=== PATIENT | male | born 1960 | race African-American/Black ===

== ENCOUNTER 2023-04-12 18:45 | Inpatient (IN) | payer MEDICARE, OTHER ==
[~2023-04-12] VITALS: Ht 175.3 cm; Wt 82.6 kg
--- NOTE | 2023-04-12 19:26 | NUR ---
MARCELA FROM [facility] C/O ABD PAIN & DISTENSION X1 WEEK. CODE STATUS DNR. PT A/OX3. TOLERATING R/A WELL WITH NO RESP DISTRESS. AMB WITH ASSISTANCE. SAFETY MEASURES IN PLACE.
[2023-04-12] MEDS ORDERED: IV NS 0.9% 1,000 ML BAG IV ONE (20:00)
--- NOTE | 2023-04-12 20:10 | NUR ---
LAC #20G S/L BLOOD COLLECTED AND SENT TO LAB
[2023-04-12 20:22] LABS: BASOPHILS % (AUTO) 0.6 % (0.0-2.0); EOSINOPHILS % (AUTO) 5.3 % (0.0-6.0); HEMATOCRIT 38 % (39-51); LYMPHOCYTES # (AUTO) 1.1 K/uL (0.8-4.8); LYMPHOCYTES % (AUTO) 20.9 % (20.0-44.0); MEAN CORPUSCULAR HGB CONC 32 g/dl (31.0-36.0); MEAN CORPUSCULAR VOLUME 93 fL (80-96); MONOCYTES # (AUTO) 0.9 K/uL (0.1-1.30); MONOCYTES % (AUTO) 16.9 % (2.0-12.0); NEUTROPHILS # (AUTO) 3.1 K/uL (1.8-8.9); NEUTROPHILS % (AUTO) 56.3 % (43.0-81.0); PLATELET COUNT (AUTO) 225 K/uL (150-450); RED BLOOD CELL COUNT(AUTO) 4.07 MIL/uL (4.5-6.0); WHITE BLOOD COUNT (AUTO) 5.5 K/uL (4.3-11.0)
--- NOTE | 2023-04-12 21:05 | NUR ---
URINE SAMPLE SENT TO LAB
[2023-04-12 21:10] LABS: ALANINE AMINOTRANSFERASE 23 U/L (12-78); ALBUMIN 3.1 g/dL (3.4-5.0); ALKALINE PHOSPHATASE 181 U/L (46-116); ASPARTATE AMINOTRANSFERASE 27 U/L (15-37); BILIRUBIN,DIRECT 0.2 mg/dL (0.0-0.2); BILIRUBIN,TOTAL 0.5 mg/dL (0.2-1.0); CALCIUM, SERUM 8.8 mg/dL (8.5-10.1); CARBON DIOXIDE 31 mmol/L (21-32); CHLORIDE 104 mmol/L (98-107); CREATININE 1.6 mg/dL (0.6-1.3); GLUCOSE 115 mg/dL (74-106); LIPASE 65 U/L (73-393); POTASSIUM 4.7 mmol/L (3.5-5.1); SODIUM SERUM 142 mmol/L (136-145); TOTAL PROTEIN, SERUM 7.1 g/dL (6.4-8.2); UREA NITROGEN, BLOOD 18 mg/dL (7-18)
[2023-04-12 21:18] LABS: MAGNESIUM 1.7 mg/dL (1.8-2.4)
[2023-04-12 21:49] LABS: BILIRUBIN,URINE 1+ (NEGATIVE); COLOR,URINE YELLOW (YELLOW); LEUKOCYTE ESTERASE ,URINE NEGATIVE (NEGATIVE); NITRITE, URINE NEGATIVE (NEGATIVE); PROTEIN,URINE NEGATIVE (NEGATIVE); UGLUCOSE NEGATIVE (NEGATIVE); UROBILINOGEN,URINE >=8.0 EU/dL (0.2)
[2023-04-12 21:57] LABS: BACTERIA,URINE None seen /HPF (None Seen); RBC,URINE 0-2 /HPF (0-2); SQUAMOUS EPITHELIAL CELL,UR 0-2 /HPF (None Seen); WBC,URINE 0-2 /HPF (0-3)
[2023-04-12 22:03] LABS: EOSINOPHILS % (MANUAL) 4 % (0-4); LYMPHOCYTES % (MANUAL) 32 % (16-48); MONOCYTES % (MANUAL) 5 % (0-11.0); NEUTROPHILS % (MANUAL) 59 (42-76)
[2023-04-12] MEDS ORDERED: IV NS 0.9% 250 ML IV ONE (22:09)
[2023-04-12] MEDS ORDERED: IOHEXOL-300 100 ML VIAL IV ONE (22:09)
[2023-04-12] MEDS ORDERED: CT SWABBABLE VALVE TRANS SET 1 EA INFUS.SET MC ONE (22:09)
--- NOTE | 2023-04-13 00:06 | NUR ---
LAB AT BEDSIDE FOR REPEAT TROPONIN
--- NOTE | 2023-04-13 02:39 | NUR ---
REPORT GIVEN TO ETHAN ON THIRD FLOOR
--- NOTE | 2023-04-13 02:46 | NUR ---
PT TRANSFERRING TO [facility] VIA HOSPITAL PROTOCOL. VSS.
[2023-04-13 02:50] VITALS: BP 123/89
--- NOTE | 2023-04-13 03:15 | NUR ---
tread builder Note Admitted this patient from ED via [facility] with ER staff @ 0250am. Patient is ambulatory, awake, alert and oriented x 2. Able to make needs known. On room air; tolerating well saturating @ 95%. Not in any form of respiratory or cardiac distress. Denies any pain or discomfort. With IV access on right forearm 20g and left forearm 20g; both patent, intact and saline locked. Body and skin assessment done. Skin is warm and intact. With umbilical hernia. Picture taken and placed to chart. Oriented to staff, room and unit. Fall and safety precautions initiated: call light and table within reach, side rails up x 3, bed in lowest locked position. Will continue to monitor throughout shift. Addendum: 04/13/23 at 0742 by JADEN MENDES RN tread builder Note Admitted this patient from ED via [facility] with ER staff @ 0250am. Patient is ambulatory, awake, alert and oriented x 2. Able to make needs known. On room air; tolerating well saturating @ 95%. Not in any form of respiratory or cardiac distress. Denies any pain or discomfort. With IV access on right forearm 20g and left forearm 20g; both patent, intact and saline locked. Body and skin assessment done. Skin is warm and intact. With umbilical hernia. Abdominal girth is 106 cm. Picture taken and placed to chart. Oriented to staff, room and unit. Fall and safety precautions initiated: call light and table within reach, side rails up x 3, bed in lowest locked position. Will continue to monitor throughout shift.
[2023-04-13] MEDS ORDERED: ONDANSETRON HCL/PF 4 MG/2 ML VIAL IVP PRN (06:00)
[2023-04-13] MEDS ORDERED: ACETAMINOPHEN 325 MG TABLET PO PRN (06:00)
--- NOTE | 2023-04-13 06:45 | NUR ---
RN Closing Note Patient in bed; awake, a/o x 2. Stable on room air. In no acute distress. No c/o pain or discomfort. With IV access on right forearm 20g and left forearm 20g; both patent, intact and saline locked. All needs met. Fall and safety precautions maintained. Endorsed to incoming morning nurse for continuity of care.
[2023-04-13 06:46] LABS: BASOPHILS % (AUTO) 0.5 % (0.0-2.0); EOSINOPHILS % (AUTO) 4.8 % (0.0-6.0); HEMATOCRIT 37 % (39-51); HEMOGLOBIN 11.8 g/dL (13.5-17.5); LYMPHOCYTES # (AUTO) 0.9 K/uL (0.8-4.8); LYMPHOCYTES % (AUTO) 17.4 % (20.0-44.0); MEAN CORPUSCULAR HGB CONC 32 g/dl (31.0-36.0); MEAN CORPUSCULAR VOLUME 92 fL (80-96); MONOCYTES # (AUTO) 0.9 K/uL (0.1-1.30); MONOCYTES % (AUTO) 17.7 % (2.0-12.0); NEUTROPHILS # (AUTO) 2.9 K/uL (1.8-8.9); NEUTROPHILS % (AUTO) 59.6 % (43.0-81.0); PLATELET COUNT (AUTO) 215 K/uL (150-450); RED BLOOD CELL COUNT(AUTO) 3.97 MIL/uL (4.5-6.0); WHITE BLOOD COUNT (AUTO) 4.9 K/uL (4.3-11.0)
[2023-04-13 07:20] LABS: CALCIUM, SERUM 8.8 mg/dL (8.5-10.1); CREATININE 1.3 mg/dL (0.6-1.3); MAGNESIUM 1.8 mg/dL (1.8-2.4); PHOSPHORUS 4.2 mg/dL (2.5-4.9); POTASSIUM 4.5 mmol/L (3.5-5.1)
[2023-04-13 07:30] VITALS: BP 127/89
[2023-04-13 07:36] LABS: BASOPHILS % (MANUAL) 0 % (0.0-2.0); EOSINOPHILS % (MANUAL) 6 % (0-4); LYMPHOCYTES % (MANUAL) 18 % (16-48); MONOCYTES % (MANUAL) 15 % (0-11.0); NEUTROPHILS % (MANUAL) 61 (42-76)
--- NOTE | 2023-04-13 07:59 | NUR ---
MS RN OPENING NOTES RECEIVED PATIENT AMBULATING IN THE ROOM, AOX2, COOPERATIVE, ABLE TO MAKE NEEDS KNOWN, BREATHING WITHOUT ANY DIFFICULTY ON ROOM AIR. DENIED PAIN OR DISCOMFORT AT THE MOMENT. PATIENT HAS IV ACCESSES ON RFA AND LFA BOTH G#20, INTACT, PATENT AND FLUSHING WELL. PATIENT HAS PROTRUDING UMBILICAL HERNIA, WOUND CONSULT ORDERED FOR POSSIBLE SKIN BREAKDOWN D/T FRICTION. DISTENDED ABDOMEN, MEASURED AT 106 CM AT THE MOMENT. PATIENT FOR US GUIDED PARACENTESIS, CONSENTS SECURED. ORIENTED TO ROOM AND STAFF. ALL SAFETY MEASURES IN PLACE: BED IN LOWEST AND LOCKED POSITION, SIDE RAILS UP X2, CALL LIGHT AND TRAY TABLE WITHIN EASY REACH.
[2023-04-13] MEDS ORDERED: ENOXAPARIN SODIUM 40 MG/0.4 ML DISP.SYRIN SQ SCH (09:00)
--- NOTE | 2023-04-13 09:26 | NUR ---
WOUND CARE CONSULT: PT PRESENTS WITH HERNIA WHICH PROTRUDES AND CAUSES DISCOMFORT WHEN HE STANDS UP (PRESENT ON ADMISSION. RN TO DISCUSS WITH PMD FOR POSSIBLE SURGICAL CONSULT.
--- NOTE | 2023-04-13 09:29 | NUR ---
RN NOTES - WOUND CARE NURSE AT BEDSIDE, RECOMMENDING FURTHER EVALUATION FOR THE PROTRUDING UMBILICAL HERNIA, MD HAS BEEN MADE AWARE.
--- NOTE | 2023-04-13 09:30 | NUR ---
RN NOTES - LOVENOX PLACED ON HOLD PER MD ORDER D/T US PARACENTESIS
--- NOTE | 2023-04-13 09:31 | NUR ---
RN NOTES - CALLED MARGARITA UPTON AT [phone] TO CLARIFY CODE STATUS, NO ANSWER, LEFT A MESSAGE
--- NOTE | 2023-04-13 11:27 | NUR ---
RN NOTES - DR WANG ORDERED TO PLACE PATIENT ON FULL CODE STATUS FOR NOW WE CANNOT SECURE POLST
[2023-04-13] MEDS ORDERED: QUET100T PO (11:38)
[2023-04-13] MEDS ORDERED: NA P133E RC (11:38)
[2023-04-13] MEDS ORDERED: SPIR25TA6 PO (11:38)
[2023-04-13] MEDS ORDERED: BLOO-697 IN (11:38)
[2023-04-13] MEDS ORDERED: MAGN400O6 PO (11:38)
[2023-04-13] MEDS ORDERED: FERR325T6 PO (11:38)
[2023-04-13] MEDS ORDERED: CARV6.252 PO (11:38)
[2023-04-13] MEDS ORDERED: ASPI-1169 PO (11:38)
[2023-04-13] MEDS ORDERED: BISA10SU61 RC (11:38)
[2023-04-13] MEDS ORDERED: INSU100V3 SQ (11:38)
[2023-04-13] MEDS ORDERED: DOCU250C14 PO (11:38)
[2023-04-13] MEDS ORDERED: ACET-868 PO (11:38)
[2023-04-13] MEDS ORDERED: PANT40TA2 PO (11:38)
[2023-04-13] MEDS ORDERED: FURO-144 PO (11:38)
[2023-04-13] MEDS ORDERED: OLAN2.5T3 PO (11:38)
[2023-04-13] MEDS ORDERED: MAG30ORA PO (11:38)
[2023-04-13] MEDS ORDERED: DIVA500T2 PO (11:38)
--- NOTE | 2023-04-13 11:47 | NUR ---
RN NOTES - RECEIVED A CALL FROM [facility] CONFIRMING PARACENTESIS PROCEDURE AROUND NOON TIME, CONFIRMED NO BLOOD THINNERS WERE ADMINISTERED AND CONSENTS WERE SIGNED. PREPARED 5 COLLECTION BOTTLES AT BEDSIDE ORDERED.
--- NOTE | 2023-04-13 11:56 | NUR ---
RN NOTES - PARACENTESIS STARTED AT AROUND 1130, US TECH AT BEDSIDE, AWAITING CONFIRMATION IF WILL SEND TO PATHOLOGY.
--- NOTE | 2023-04-13 12:08 | NUR ---
RN NOTES - US GUIDED PARACENTESIS DONE - 5000 CC OUT, PATIENT TOLERATED. VS STABLE
[2023-04-13 12:09] VITALS: BP 130/95
--- NOTE | 2023-04-13 12:17 | NUR ---
RN NOTES - ABDOMINAL GIRTH - 102 CMS
--- NOTE | 2023-04-13 12:39 | NUR ---
RN NOTES - DISCARDED 5 BOTTLES OF PERITONEAL FLUID PER MD ORDER, WILL ADMINISTER ALBUMIN 25% 12.5 MG IN 50 ML BOTTLE ORDERED FOR POSSIBLE HYPOVOLEMIA
[2023-04-13] MEDS ORDERED: ALBUMIN 25% 12.5 GM/50 ML BOTTLE IV ONE (13:00)
[2023-04-13] MEDS ORDERED: ALBUMIN 25% 12.5 GM in PREMIX 1 EA IV ONE (13:00)
[2023-04-13 15:30] VITALS: BP 129/83
[2023-04-13 17:00] VITALS: BP 125/85
--- NOTE | 2023-04-13 17:07 | NUR ---
MS ABALONE SHELLER NOTES DISCHARGED PATIENT IN STABLE CONDITION TO [facility], PATIENT IS AOX2, ABLE TO MAKE NEEDS KNOWN, AMBULATORY, BREATHING WITHOUT DIFFICULTY ON ROOM AIR, PATIENT DENIED PAIN NOR DISCOMFORT LIKE N/V, CHEST PAIN AT THIS MOMENT, VITAL SIGNS TAKEN, STABLE, RECORDED. ABDOMINAL GIRTH MEASURED 102 CMS, S/P PARACENTESIS. DISCHARGE INSTRUCTION GIVEN TO OTILIA RAMIREZ OF THE SNF. SKIN ASSESSMENT DONE, INTACT. ALL BELONGINGS ACCOUNTED FOR, FORM SIGNED BY 2 RNS. ALL DUE MEDS GIVEN, ALL NEEDS MET. PATIENT WAS PICKED UP VIA GURNEY BY 2 SYSTEM SUPPORT TECHNICIAN AT AROUND 1708. BROTHER KYLIE HAS BEEN CALLED. MD AND CHARGE NURSE AWARE OF THE DISCHARGE.
== END 2023-04-13 17:10 | DRG 432 ==
LOC: ER 18:50 → MED 04-13 02:34
PROVIDERS: ADMIT Nurse Practitioner Acute Care
PROC: 0W9G3ZZ Drainage of Peritoneal Cavity, Percutaneous Approach (ICD-10-PCS; principal; 2023-04-13)
DX: K70.31 Alcoholic cirrhosis of liver with ascites (principal); N17.0 Acute kidney failure with tubular necrosis; E44.0 Moderate protein-calorie malnutrition; D63.8 Anemia in other chronic diseases classified elsewhere; E11.9 Type 2 diabetes mellitus without complications; E66.9 Obesity, unspecified; E83.42 Hypomagnesemia; E88.09 Other disorders of plasma-protein metabolism, not elsewhere classified; E27.8 Other specified disorders of adrenal gland; N18.9 Chronic kidney disease, unspecified; F10.10 Alcohol abuse, uncomplicated; Z68.26 Body mass index [BMI] 26.0-26.9, adult
CPT/HCPCS: 36415; 71045-TC; 76942-TC; 80048-TC; 80061-TC; 80076-TC; 81001; 83605-TC; 83690-TC; 83735-TC; 83880; 84100-TC; 84484-TC; 85025-TC; 85730-TC; 87040-TC; A4216; A4223; G0378; J7050; P9047; Q9967

== ENCOUNTER 2023-06-13 17:08 | Inpatient (IN) | payer MEDICARE, OTHER ==
[~2023-06-13] VITALS: Ht 175.3 cm; Wt 95.3 kg
[~2023-06-13 17:08] MED LIST: ACET-868 PO; ASPI-1169 PO; BISA10SU61 RC; BLOO-697 IN; CARV6.252 PO; DIVA500T2 PO; DOCU250C14 PO; FERR325T6 PO; FURO-144 PO; INSU100V3 SQ; MAG30ORA PO; MAGN400O6 PO; NA P133E RC; OLAN2.5T3 PO; PANT40TA2 PO; QUET100T PO; SPIR25TA6 PO
[2023-06-13 18:10] LABS: BASOPHILS # (AUTO) 0.1 K/uL (0.0-0.2); BASOPHILS % (AUTO) 1.1 % (0.0-2.0); EOSINOPHILS # (AUTO) 0.2 K/uL (0.0-0.7); EOSINOPHILS % (AUTO) 5.1 % (0.0-6.0); HEMATOCRIT 35 % (39-51); HEMOGLOBIN 11.4 g/dL (13.5-17.5); MEAN CORPUSCULAR HEMOGLOBIN 29 PG (26.0-33.0); MEAN CORPUSCULAR HGB CONC 33 g/dl (31.0-36.0); MEAN CORPUSCULAR VOLUME 89 fL (80-96); MONOCYTES # (AUTO) 0.7 K/uL (0.1-1.30); MONOCYTES % (AUTO) 15.5 % (2.0-12.0); NEUTROPHILS # (AUTO) 2.6 K/uL (1.8-8.9); NEUTROPHILS % (AUTO) 56.3 % (43.0-81.0); PLATELET COUNT (AUTO) 173 K/uL (150-450); RED BLOOD CELL COUNT(AUTO) 3.89 MIL/uL (4.5-6.0); RED CELL DISTRIBUTION WIDTH 16.1 % (11.5-15.0); WHITE BLOOD COUNT (AUTO) 4.7 K/uL (4.3-11.0)
[2023-06-13 18:20] LABS: APPEARANCE,URINE CLEAR (CLEAR); BILIRUBIN,URINE NEGATIVE (NEGATIVE); BLOOD, URINE NEGATIVE Ery/uL (NEGATIVE); COLOR,URINE YELLOW (YELLOW); KETONES,URINE NEGATIVE (NEGATIVE); LEUKOCYTE ESTERASE ,URINE NEGATIVE (NEGATIVE); NITRITE, URINE NEGATIVE (NEGATIVE); PROTEIN,URINE NEGATIVE (NEGATIVE); UGLUCOSE NEGATIVE (NEGATIVE)
[2023-06-13 18:20] LABS: CALCIUM, SERUM 9.1 mg/dL (8.5-10.1); CARBON DIOXIDE 29 mmol/L (21-32); CHLORIDE 101 mmol/L (98-107); CREATININE 1.4 mg/dL (0.6-1.3); GLUCOSE 135 mg/dL (74-106); POTASSIUM 4.9 mmol/L (3.5-5.1); SODIUM SERUM 137 mmol/L (136-145); UREA NITROGEN, BLOOD 29 mg/dL (7-18)
[2023-06-13 18:24] LABS: ALANINE AMINOTRANSFERASE 16 U/L (12-78); ALBUMIN 3.3 g/dL (3.4-5.0); ALKALINE PHOSPHATASE 154 U/L (46-116); ASPARTATE AMINOTRANSFERASE 21 U/L (15-37); BILIRUBIN,DIRECT 0.2 mg/dL (0.0-0.2); BILIRUBIN,TOTAL 0.4 mg/dL (0.2-1.0); LIPASE 74 U/L (73-393); TOTAL PROTEIN, SERUM 7.5 g/dL (6.4-8.2)
[2023-06-13] MEDS ORDERED: MAG HYDROX/AL HYDROX/SIMETH 30 ML UDC PO PRN (18:30)
[2023-06-13] MEDS ORDERED: Z GUARD REMEDY 4 OZ OINT TP PRN (18:30)
[2023-06-13] MEDS ORDERED: MAGNESIUM HYDROXIDE 30 ML UDC PO PRN (18:30)
[2023-06-13] MEDS ORDERED: ONDANSETRON HCL/PF 4 MG/2 ML VIAL IVP PRN (18:30)
[2023-06-13] MEDS ORDERED: ACETAMINOPHEN 325 MG TABLET PO PRN (18:30)
[2023-06-13 18:48] LABS: EOSINOPHILS % (MANUAL) 6 % (0-4); LYMPHOCYTES % (MANUAL) 23 % (16-48); MONOCYTES % (MANUAL) 16 % (0-11.0); NEUTROPHILS % (MANUAL) 55 (42-76); PLATELET ESTIMATE ADEQUATE
[2023-06-13 21:10] VITALS: O2SAT 96
[2023-06-14 07:00] VITALS: BP 125/73; TEMP 98.1; O2SAT 96
[2023-06-14 07:07] LABS: BASOPHILS # (AUTO) 0.1 K/uL (0.0-0.2); BASOPHILS % (AUTO) 1.5 % (0.0-2.0); EOSINOPHILS # (AUTO) 0.3 K/uL (0.0-0.7); EOSINOPHILS % (AUTO) 5.7 % (0.0-6.0); HEMATOCRIT 36 % (39-51); HEMOGLOBIN 11.8 g/dL (13.5-17.5); LYMPHOCYTES % (AUTO) 23.3 % (20.0-44.0); MEAN CORPUSCULAR HEMOGLOBIN 29 PG (26.0-33.0); MEAN CORPUSCULAR HGB CONC 33 g/dl (31.0-36.0); MEAN CORPUSCULAR VOLUME 90 fL (80-96); MONOCYTES # (AUTO) 0.8 K/uL (0.1-1.30); MONOCYTES % (AUTO) 17.1 % (2.0-12.0); NEUTROPHILS # (AUTO) 2.4 K/uL (1.8-8.9); NEUTROPHILS % (AUTO) 52.4 % (43.0-81.0); PLATELET COUNT (AUTO) 185 K/uL (150-450); RED BLOOD CELL COUNT(AUTO) 4.03 MIL/uL (4.5-6.0); RED CELL DISTRIBUTION WIDTH 16.3 % (11.5-15.0); WHITE BLOOD COUNT (AUTO) 4.5 K/uL (4.3-11.0)
[2023-06-14 07:26] LABS: CALCIUM, SERUM 9.6 mg/dL (8.5-10.1); CREATININE 1.3 mg/dL (0.6-1.3); MAGNESIUM 2.4 mg/dL (1.8-2.4); PHOSPHORUS 4.7 mg/dL (2.5-4.9); POTASSIUM 4.6 mmol/L (3.5-5.1)
[2023-06-14 11:09] LABS: ANISOCYTOSIS 1+; EOSINOPHILS % (MANUAL) 7 % (0-4); LYMPHOCYTES % (MANUAL) 26 % (16-48); MONOCYTES % (MANUAL) 11 % (0-11.0); NEUTROPHILS % (MANUAL) 56 (42-76); PLATELET ESTIMATE ADEQUATE
[2023-06-14 14:25] LABS: INR 1.12 (0.91-1.10); PROTHROMBIN TIME 11.7 SECS (9.2-11.1)
[2023-06-14 16:00] VITALS: BP 109/76; TEMP 98.2; O2SAT 99
[2023-06-14 20:00] VITALS: BP 111/56; TEMP 98.5; O2SAT 96
[2023-06-15 07:37] LABS: CALCIUM, SERUM 9.4 mg/dL (8.5-10.1); CREATININE 1.4 mg/dL (0.6-1.3); MAGNESIUM 2.2 mg/dL (1.8-2.4); PHOSPHORUS 3.4 mg/dL (2.5-4.9); POTASSIUM 4.6 mmol/L (3.5-5.1)
[2023-06-15 08:00] VITALS: BP 127/67; TEMP 97.5; O2SAT 93
[2023-06-15 16:00] VITALS: BP 112/78; TEMP 98.6; O2SAT 97
== END 2023-06-15 18:30 | DRG 432 ==
LOC: ER 17:25 → MED 20:36
PROVIDERS: ADMIT Internal Medicine; ATTEND Internal Medicine
PROC: 0W9G3ZZ Drainage of Peritoneal Cavity, Percutaneous Approach (ICD-10-PCS; principal; 2023-06-14)
DX: K70.31 Alcoholic cirrhosis of liver with ascites (principal); N17.0 Acute kidney failure with tubular necrosis; E87.1 Hypo-osmolality and hyponatremia; E11.42 Type 2 diabetes mellitus with diabetic polyneuropathy; K21.9 Gastro-esophageal reflux disease without esophagitis; F20.9 Schizophrenia, unspecified; Z79.4 Long term (current) use of insulin; J44.9 Chronic obstructive pulmonary disease, unspecified; N18.9 Chronic kidney disease, unspecified; I12.9 Hypertensive chronic kidney disease with stage 1 through stage 4 chronic kidney disease, or unspecified chronic kidney disease; E11.22 Type 2 diabetes mellitus with diabetic chronic kidney disease; D35.02 Benign neoplasm of left adrenal gland; K57.30 Diverticulosis of large intestine without perforation or abscess without bleeding; N40.0 Benign prostatic hyperplasia without lower urinary tract symptoms; F10.21 Alcohol dependence, in remission; E87.70 Fluid overload, unspecified
CPT/HCPCS: 36415; 49083; 71045-TC; 80048-TC; 80076-TC; 83690-TC; 83735-TC; 84100-TC; 84484-TC; 85025-TC; 85610-TC; 87081-TC; 87086-TC; G0378

== ENCOUNTER 2023-08-21 11:06 | Inpatient (IN) | payer MEDICARE, OTHER ==
[~2023-08-21] VITALS: Ht 167.6 cm; Wt 84.4 kg
[2023-08-21 11:46] LABS: BASOPHILS % (AUTO) 0.8 % (0.0-2.0); EOSINOPHILS # (AUTO) 0.2 K/uL (0.0-0.7); EOSINOPHILS % (AUTO) 4.4 % (0.0-6.0); HEMATOCRIT 34 % (39-51); HEMOGLOBIN 11.2 g/dL (13.5-17.5); LYMPHOCYTES # (AUTO) 0.8 K/uL (0.8-4.8); LYMPHOCYTES % (AUTO) 16.9 % (20.0-44.0); MEAN CORPUSCULAR HEMOGLOBIN 30 PG (26.0-33.0); MEAN CORPUSCULAR HGB CONC 33 g/dl (31.0-36.0); MEAN CORPUSCULAR VOLUME 92 fL (80-96); MONOCYTES # (AUTO) 0.7 K/uL (0.1-1.30); NEUTROPHILS # (AUTO) 2.9 K/uL (1.8-8.9); NEUTROPHILS % (AUTO) 62.9 % (43.0-81.0); PLATELET COUNT (AUTO) 193 K/uL (150-450); RED CELL DISTRIBUTION WIDTH 17.6 % (11.5-15.0); WHITE BLOOD COUNT (AUTO) 4.6 K/uL (4.3-11.0)
[2023-08-21 11:58] LABS: ALBUMIN 3.7 g/dL (3.4-5.0); BILIRUBIN,DIRECT 0.2 mg/dL (0.0-0.2); BILIRUBIN,TOTAL 0.5 mg/dL (0.2-1.0); CREATININE 1.5 mg/dL (0.6-1.3); TOTAL PROTEIN, SERUM 7.8 g/dL (6.4-8.2)
[2023-08-21] MEDS ORDERED: DEXT15DR23 EACHEYE (12:12)
[2023-08-21] MEDS ORDERED: GLUC1KIT SQ (12:12)
[2023-08-21] MEDS: DIVALPROEX SODIUM 500 MG TABLET.DR PO SCH ×2 (13:00→16:56)
[2023-08-21] MEDS ORDERED: ACETAMINOPHEN 325 MG TABLET PO PRN (13:00)
[2023-08-21] MEDS ORDERED: ONDANSETRON HCL/PF 4 MG/2 ML VIAL IVP PRN (13:00)
[2023-08-21] MEDS ORDERED: BISACODYL SUPP (10 MG) 10 MG/SUPP.RECT SUPP.RECT RC PRN (13:00)
[2023-08-21] MEDS ORDERED: MORPHINE SULFATE INJ 2 MG/ML DISP.SYRIN IV PRN (13:00)
[2023-08-21] MEDS: QUETIAPINE FUMARATE 100 MG TABLET PO SCH ×3 (13:00→20:37)
[2023-08-21 13:14] LABS: APPEARANCE,URINE CLEAR (CLEAR); BILIRUBIN,URINE NEGATIVE (NEGATIVE); BLOOD, URINE NEGATIVE Ery/uL (NEGATIVE); COLOR,URINE YELLOW (YELLOW); KETONES,URINE NEGATIVE (NEGATIVE); LEUKOCYTE ESTERASE ,URINE NEGATIVE (NEGATIVE); NITRITE, URINE NEGATIVE (NEGATIVE); PH,URINE 6.5 (5.0-8.0); PROTEIN,URINE NEGATIVE (NEGATIVE); UGLUCOSE NEGATIVE (NEGATIVE); UROBILINOGEN,URINE 0.2 EU/dL (0.2)
[2023-08-21 14:00] VITALS: O2SAT 97
[2023-08-21 16:04] VITALS: BP 111/77; TEMP 98.2; O2SAT 94
[2023-08-21] MEDS: OLANZAPINE 2.5 MG TABLET PO SCH (16:56)
[2023-08-21] MEDS: CARVEDILOL 6.25 MG TABLET PO SCH (17:10)
[2023-08-21 20:00] VITALS: BP 105/63; TEMP 97.5; O2SAT 97
[2023-08-22 06:34] LABS: BASOPHILS % (AUTO) 0.8 % (0.0-2.0); EOSINOPHILS # (AUTO) 0.2 K/uL (0.0-0.7); EOSINOPHILS % (AUTO) 5.6 % (0.0-6.0); HEMATOCRIT 34 % (39-51); HEMOGLOBIN 10.7 g/dL (13.5-17.5); LYMPHOCYTES # (AUTO) 0.8 K/uL (0.8-4.8); LYMPHOCYTES % (AUTO) 17.4 % (20.0-44.0); MEAN CORPUSCULAR HEMOGLOBIN 30 PG (26.0-33.0); MEAN CORPUSCULAR HGB CONC 32 g/dl (31.0-36.0); MEAN CORPUSCULAR VOLUME 93 fL (80-96); MONOCYTES # (AUTO) 0.7 K/uL (0.1-1.30); NEUTROPHILS # (AUTO) 2.6 K/uL (1.8-8.9); NEUTROPHILS % (AUTO) 60.2 % (43.0-81.0); PLATELET COUNT (AUTO) 187 K/uL (150-450); RED BLOOD CELL COUNT(AUTO) 3.61 MIL/uL (4.5-6.0); RED CELL DISTRIBUTION WIDTH 17.2 % (11.5-15.0); WHITE BLOOD COUNT (AUTO) 4.3 K/uL (4.3-11.0)
[2023-08-22 06:57] LABS: ALBUMIN 3.4 g/dL (3.4-5.0); BILIRUBIN,TOTAL 0.4 mg/dL (0.2-1.0); CALCIUM, SERUM 8.8 mg/dL (8.5-10.1); CREATININE 1.5 mg/dL (0.6-1.3); MAGNESIUM 2.5 mg/dL (1.8-2.4); PHOSPHORUS 3.6 mg/dL (2.5-4.9); POTASSIUM 4.9 mmol/L (3.5-5.1); TOTAL PROTEIN, SERUM 7.4 g/dL (6.4-8.2)
[2023-08-22 07:30] VITALS: BP 122/81; TEMP 97.7; O2SAT 97
[2023-08-22 07:53] LABS: EOSINOPHILS % (MANUAL) 5 % (0-4); LYMPHOCYTES % (MANUAL) 26 % (16-48); MONOCYTES % (MANUAL) 13 % (0-11.0); NEUTROPHILS % (MANUAL) 56 (42-76)
[2023-08-22 07:54] LABS: ANISOCYTOSIS 1+; PLATELET ESTIMATE ADEQUATE
[2023-08-22] MEDS: PANTOPRAZOLE 40 MG TABLET.DR PO SCH (08:23)
[2023-08-22] MEDS: ASPIRIN 81 MG TAB.CHEW PO SCH (08:45)
[2023-08-22] MEDS: FERROUS SULFATE (325 MG) 325 MG/TAB TABLET PO SCH (08:45)
[2023-08-22] MEDS: SPIRONOLACTONE 25 MG TABLET PO SCH (08:45)
[2023-08-22] MEDS: OLANZAPINE 2.5 MG TABLET PO SCH ×2 (08:45→17:37)
[2023-08-22] MEDS: DOCUSATE SODIUM 250 MG CAPSULE PO SCH (08:45)
[2023-08-22] MEDS: QUETIAPINE FUMARATE 100 MG TABLET PO SCH ×4 (08:45→21:02)
[2023-08-22] MEDS: DIVALPROEX SODIUM 500 MG TABLET.DR PO SCH ×3 (08:45→17:37)
[2023-08-22] MEDS: FUROSEMIDE 40 MG TABLET PO SCH (08:46)
[2023-08-22] MEDS: CARVEDILOL 6.25 MG TABLET PO SCH ×2 (08:46→17:37)
[2023-08-22 11:02] LABS: INR 1.14 (0.91-1.10)
[2023-08-22] MEDS ORDERED: ALBUMIN 25% 25 GM in PREMIX 1 EA IV PRN (12:30)
[2023-08-22 15:51] LABS: CREATININE, URINE < 13.0 MG/DL (30.0-125.0); URINE SODIUM, RANDOM 100 mmol/l (40-220); URINE TOTAL PROTEIN 2.7 mg/dL (0-11.9)
[2023-08-22 16:00] VITALS: BP 109/69; TEMP 98.2; O2SAT 97
[2023-08-23 07:09] LABS: BASOPHILS % (AUTO) 0.5 % (0.0-2.0); EOSINOPHILS # (AUTO) 0.2 K/uL (0.0-0.7); EOSINOPHILS % (AUTO) 3.1 % (0.0-6.0); HEMATOCRIT 33 % (39-51); HEMOGLOBIN 10.8 g/dL (13.5-17.5); LYMPHOCYTES # (AUTO) 0.7 K/uL (0.8-4.8); LYMPHOCYTES % (AUTO) 13.1 % (20.0-44.0); MEAN CORPUSCULAR HEMOGLOBIN 30 PG (26.0-33.0); MEAN CORPUSCULAR HGB CONC 33 g/dl (31.0-36.0); MEAN CORPUSCULAR VOLUME 92 fL (80-96); MONOCYTES # (AUTO) 1.1 K/uL (0.1-1.30); MONOCYTES % (AUTO) 20.3 % (2.0-12.0); NEUTROPHILS # (AUTO) 3.5 K/uL (1.8-8.9); PLATELET COUNT (AUTO) 175 K/uL (150-450); RED BLOOD CELL COUNT(AUTO) 3.59 MIL/uL (4.5-6.0); RED CELL DISTRIBUTION WIDTH 17.1 % (11.5-15.0); WHITE BLOOD COUNT (AUTO) 5.6 K/uL (4.3-11.0)
[2023-08-23 07:50] LABS: CALCIUM, SERUM 8.7 mg/dL (8.5-10.1); CREATININE 1.1 mg/dL (0.6-1.3); POTASSIUM 4.6 mmol/L (3.5-5.1)
[2023-08-23] MEDS: PANTOPRAZOLE 40 MG TABLET.DR PO SCH (07:50)
[2023-08-23 07:51] LABS: ALBUMIN 2.9 g/dL (3.4-5.0); BILIRUBIN,TOTAL 0.5 mg/dL (0.2-1.0); MAGNESIUM 2.2 mg/dL (1.8-2.4); PHOSPHORUS 3.3 mg/dL (2.5-4.9); TOTAL PROTEIN, SERUM 6.5 g/dL (6.4-8.2)
[2023-08-23 08:00] VITALS: BP 110/82; TEMP 99.7; O2SAT 99
[2023-08-23] MEDS: OLANZAPINE 2.5 MG TABLET PO SCH ×2 (08:19→16:45)
[2023-08-23] MEDS: FUROSEMIDE 40 MG TABLET PO SCH (08:19)
[2023-08-23] MEDS: DOCUSATE SODIUM 250 MG CAPSULE PO SCH (08:19)
[2023-08-23] MEDS: DIVALPROEX SODIUM 500 MG TABLET.DR PO SCH ×3 (08:19→16:45)
[2023-08-23] MEDS: SPIRONOLACTONE 25 MG TABLET PO SCH (08:19)
[2023-08-23] MEDS: ASPIRIN 81 MG TAB.CHEW PO SCH (08:19)
[2023-08-23] MEDS: FERROUS SULFATE (325 MG) 325 MG/TAB TABLET PO SCH (08:19)
[2023-08-23] MEDS: CARVEDILOL 6.25 MG TABLET PO SCH ×2 (08:19→16:45)
[2023-08-23] MEDS: QUETIAPINE FUMARATE 100 MG TABLET PO SCH ×4 (08:20→21:45)
[2023-08-23 08:33] LABS: ANISOCYTOSIS 1+; EOSINOPHILS % (MANUAL) 2 % (0-4); LYMPHOCYTES % (MANUAL) 17 % (16-48); MONOCYTES % (MANUAL) 21 % (0-11.0); NEUTROPHILS % (MANUAL) 60 (42-76); PLATELET ESTIMATE ADEQUATE
[2023-08-23] MEDS ORDERED: CARVEDILOL 3.125 MG TABLET PO SCH ×2 (09:00→21:00)
[2023-08-23 12:00] VITALS: BP 105/73; TEMP 98.2; O2SAT 99
[2023-08-23 16:00] VITALS: BP 99/60; TEMP 97.2; O2SAT 96
[2023-08-23 20:00] VITALS: BP 115/73; TEMP 97.9; O2SAT 96
[2023-08-24] VITALS: BP 101/78; TEMP 97.7; O2SAT 100
[2023-08-24 04:00] VITALS: BP 109/75; TEMP 98.8; O2SAT 99
[2023-08-24] MEDS: PANTOPRAZOLE 40 MG TABLET.DR PO SCH (07:40)
[2023-08-24] MEDS: DIVALPROEX SODIUM 500 MG TABLET.DR PO SCH ×2 (08:36→13:19)
[2023-08-24] MEDS: OLANZAPINE 2.5 MG TABLET PO SCH (08:36)
[2023-08-24] MEDS: QUETIAPINE FUMARATE 100 MG TABLET PO SCH ×2 (08:36→13:19)
[2023-08-24] MEDS: ASPIRIN 81 MG TAB.CHEW PO SCH (08:36)
[2023-08-24] MEDS: FERROUS SULFATE (325 MG) 325 MG/TAB TABLET PO SCH (08:36)
[2023-08-24] MEDS: DOCUSATE SODIUM 250 MG CAPSULE PO SCH (08:36)
[2023-08-24] MEDS ORDERED: EMPA25TA PO (08:39)
[2023-08-24] MEDS ORDERED: SPIR25TA6 PO (08:39)
[2023-08-24] MEDS ORDERED: CARV12.52 PO (08:39)
[2023-08-24] MEDS ORDERED: SACU1TAB PO (08:39)
[2023-08-24] MEDS ORDERED: CARVEDILOL 12.5 MG TABLET PO SCH (09:00)
[2023-08-24] MEDS ORDERED: SPIRONOLACTONE 25 MG TABLET PO SCH (09:00)
[2023-08-24 09:30] VITALS: BP 113/74; TEMP 98.6; O2SAT 99
== END 2023-08-24 16:38 | DRG 432 ==
LOC: ER 11:15 → MED 14:01 → TELE 08-22 17:49
PROVIDERS: ADMIT Internal Medicine; ATTEND Internal Medicine
PROC: 0W9G3ZZ Drainage of Peritoneal Cavity, Percutaneous Approach (ICD-10-PCS; principal; 2023-08-22)
DX: K70.31 Alcoholic cirrhosis of liver with ascites (principal); I50.21 Acute systolic (congestive) heart failure; I13.0 Hypertensive heart and chronic kidney disease with heart failure and stage 1 through stage 4 chronic kidney disease, or unspecified chronic kidney disease; N17.9 Acute kidney failure, unspecified; K76.6 Portal hypertension; N18.30 Chronic kidney disease, stage 3 unspecified; I25.5 Ischemic cardiomyopathy; E11.22 Type 2 diabetes mellitus with diabetic chronic kidney disease; N18.9 Chronic kidney disease, unspecified; F20.9 Schizophrenia, unspecified; D64.9 Anemia, unspecified; K21.9 Gastro-esophageal reflux disease without esophagitis; Z79.4 Long term (current) use of insulin; F31.9 Bipolar disorder, unspecified; E83.9 Disorder of mineral metabolism, unspecified; N25.0 Renal osteodystrophy; F10.21 Alcohol dependence, in remission
CPT/HCPCS: 36415; 49083; 71045-TC; 80048-TC; 80053-TC; 80076-TC; 82570-TC; 83690-TC; 83735-TC; 84100-TC; 84300-TC; 85025-TC; 85610-TC; 87081-TC; 87086-TC; 93307-TC; A4216; A4223; G0378; J2270; J7040; J7050; P9047